=== PATIENT | female | born 1990 | race Caucasian/White ===

== ENCOUNTER 2023-09-08 12:56 | Emergency (ER) | payer BC, SELFPAY ==
[2023-09-08 13:03] VITALS: BP 133/92
--- NOTE | 2023-09-08 14:06 | ED.SKININJ ---
HPI-Injury
General
Chief Complaint: Skin Problem
Source: patient
Exam Limitations: none
Time Seen by Provider: 09/08/23 13:50
Nursing documentation reviewed up to this point in time: agreed with
History of Present Illness-Injury
Initial Injury comments:
33-year-old female with history of diabetes on Mounjaro, states she developed redness and pain in the right second toe yesterday morning, it became more sore during the day and it was so painful during the night that she became tearful, she has
taken nothing for the pain. She went to urgent care earlier today, they prescribed azithromycin and sent a prescription to her pharmacy, they told her that if she notices a red streak up the foot to come to the ER, on the way to the pharmacy she
noticed a red streak on the top of her foot so she came here for evaluation.
She denies fever or chills. Denies N/V. She feels well otherwise. No recollection of overuse or injury
Past History
Past History
ED Past Medical History: NIDDM
ED Past Surgical History: Gynecological and Other (hernia repair)
Social History
Tobacco: Non-smoker
Alcohol: None
Personal: Single
Living: with family
Employment: Employed
Review of Systems
Review of Systems
Allergies reviewed?: Yes
All Other Systems: ROS reviewed and negative except as documented in HPI and ROS
Constitutional: Denies fever or chills
Musculoskeletal: Reports other (sore, red right 2nd toe)
Phy Exam
Physical Exam
Physical Exam:
PHYSICAL EXAMINATION:
General: no apparent distress, not acutely ill
Neuro: alert and oriented.
Psychiatric: well kept. interactive and cooperative
Musculoskeletal: Right second toe skin is intact, tow is red, tender, warm, red streak extends up the dorsum about 6 cm and a milder pink line lower abbasi marked for observation. The rest of the toes are unaffected. Moves
with ease
Skin: Warm, pink.
Course
Vital Signs
Initial and Last Documented VS:
Initial Vital Signs
Temp Pulse Resp BP Pulse Ox
97.8 F 96 16 133/92 98
09/08/23 13:03 09/08/23 13:03 09/08/23 13:03 09/08/23 13:03 09/08/23 13:03
Last Documented Vital Signs
Temp Pulse Resp BP Pulse Ox
97.8 F 96 16 133/92 98
09/08/23 13:03 09/08/23 13:03 09/08/23 13:03 09/08/23 13:03 09/08/23 13:03
MDM/Problems Addressed
Differential Diagnosis Includes:
cellulitis, fracture
MDM/Problems Addressed:
33-year-old female with history of diabetes on Mounjaro, states she developed redness and pain in the right second toe yesterday morning, it became more sore during the day and it was so painful during the night that she became tearful, she has
taken nothing for the pain. She went to urgent care earlier today, they prescribed azithromycin and sent a prescription to her pharmacy, they told her that if she notices a red streak up the foot to come to the ER, on the way to the pharmacy she
noticed a red streak on the top of her foot so she came here for evaluation. She didn't pickers material handlers the Azithromycin. Had neg toe xray at .
She denies fever or chills. Denies N/V. She feels well otherwise. No recollection of overuse or injury
Afebrile, NAD
No systemic symptoms, no indication for lab work
Rx for Clindamycin sent to her pharmacy. told to not take the Azithromycin
Return instructions discussed.
Pt offered wheelchair but chose to ambulate out. Mild limp
*Critical Care Note
Total Time (30-74mins, 75-104mins- exclusive of procedures): Not Applicable
ED Attending Note
-
Portions of this chart may have been created with voice recognition software.� Occasional wrong word or��sound alike� substitutions may have occurred due to the inherent limitations of voice recognition software.
Discharge Plan
Departure
Patient Disposition: Home (Routine Discharge)
Date of Disposition: 09/08/23
Time of Disposition: 13:59
Patient with high blood pressure during this ER visit?: Yes
Condition: Good
Discharge Problem:
Cellulitis of second toe, right
Instructions: Cellulitis (Skin Infection), Adult (DC)
Prescriptions:
New
clindamycin HCl 300 mg capsule
300 mg PO QID Qty: 28 0RF
Referrals:
Olga Rust PA-C [Family Provider] - Follow up in 2-3 days
Activity Restrictions/Additional Instructions:
As we discussed, I sent a prescription to your pharmacy for clindamycin 300 mg to take 4 times a day for 7 days.
See your doctor for recheck in 4 to 5 days, if it is not improving you may need to extend the antibiotic
Rest with the foot elevated to the level of your heart is much as you can in the next 2 days.
Tylenol or ibuprofen if needed for pain
Return here immediately for fever, chills, vomiting or feeling sicker in any way, or if the red streak reached just below the knee, the redness of your toe spreads to other toes or 1/2 up the top of your foot
Interventions
Interventions:
*Risk Screen - Suicide Last Done: 09/08/23 13:03
*General Assessment Last Done: 09/08/23 13:03
*Neglect/Abuse Screening Last Done: 09/08/23 13:03
ED- Fall Risk Assessment Last Done: 09/08/23 14:05
*ED COVID-19 Vaccine History Last Done: 09/08/23 14:05
*Nursing Disposition Last Done: 09/08/23 14:05
ED-Skin Assessment Last Done: 09/08/23 14:05
Discharge Date and Time
Discharge Date/Time: 09/08/23 14:06
Print Language: AMERICAN
== END 2023-09-08 14:06 | disposition home or self-care (01) ==
LOC: EMR 12:56
PROVIDERS: EMERGENCY PHYSICIAN Student in an Organized Health Care Education/Training Program; FAMILY PHYSICIAN Physician Assistant
DX: L03.031 Cellulitis of right toe (principal); R03.0 Elevated blood-pressure reading, without diagnosis of hypertension; E11.9 Type 2 diabetes mellitus without complications
CPT/HCPCS: 99283